=== PATIENT | male | born 2000 | race African-American/Black ===

== ENCOUNTER 2018-04-28 01:12 | Emergency (ER) | payer MEDICAID, SELFPAY ==
[2018-04-28 01:14] VITALS: BP 126/81; PULSE 95; RESP 16; TEMP 36.9; O2SAT 99; BMI 24.3
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
[2018-04-28 01:21] VITALS: TEMP 36.9; O2SAT 99
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
[2018-04-28] MEDS: 0.9% Normal Saline 1,000 ML 1000 ML IV (01:43)
[2018-04-28] MEDS: Diphth,Pertuss(Acell),Tet Vac 0.5 ML Vial IM (01:43)
--- NOTE | 2018-04-28 01:52 | ED.RN ---
PD AT BEDSIDE WITH PATIENT. 1CM LACERATION ON BRIDGE OF NOSE. 5CM ABRASION TO LEFT TEMPORAL AREA ABOVE LEFT EYE BROW. BRUISING AND TENDERNESS TO LEFT EAR. NO BLEEDING FROM EARS NOTED.
[2018-04-28] MEDS: Morphine 4 MG/ML Syringe IV (02:08)
[2018-04-28 02:28] VITALS: BP 135/90; PULSE 65; RESP 16; O2SAT 100
[2018-04-28] MEDS: Cefazolin 1 GM/50 ML BAG IV (02:59)
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
[2018-04-28 03:00] VITALS: BP 130/88; PULSE 72; RESP 14; O2SAT 100
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
[2018-04-28 03:57] VITALS: BP 114/59; PULSE 91; RESP 18; O2SAT 98
[2018-04-28] MEDS: Ketorolac 15 MG/ML Vial IV (04:04)
--- NOTE | 2018-04-28 04:10 | ED.RN ---
Reviewed discharge instructions with patient, male friend and mother. Pt states he will stay with mom manuel. She has plenty of ice, heat and ibuprofen for pain. PT instructed to fill rx for atb and for fu. Paperwork given to adult male friend in room. Wheelchair to lobby. Mom drove home.
[2018-04-28 04:11] VITALS: BP 120/70; PULSE 65; RESP 16; O2SAT 98
== END 2018-04-28 04:10 | disposition home or self-care (01) ==
PROVIDERS: Emergency Provider Emergency Medicine
DX: S02.2XXA Fracture of nasal bones, initial encounter for closed fracture (principal); S01.21XA Laceration without foreign body of nose, initial encounter; S01.511A Laceration without foreign body of lip, initial encounter; S00.83XA Contusion of other part of head, initial encounter; S00.03XA Contusion of scalp, initial encounter; S00.81XA Abrasion of other part of head, initial encounter; S00.01XA Abrasion of scalp, initial encounter; S39.92XA Unspecified injury of lower back, initial encounter; Y04.0XXA Assault by unarmed brawl or fight, initial encounter; Y93.89 Activity, other specified; Y92.89 Other specified places as the place of occurrence of the external cause; Z59.0 Homelessness
CPT/HCPCS: 12013; 70450; 70486; 72100; 72125; 80320; 90715; 96361; 96365; 96375; 99285; J7030; J7050; A4216; G0480

== ENCOUNTER 2018-05-13 11:22 | Emergency (ER) | payer MEDICAID, SELFPAY ==
[2018-05-13 11:22] VITALS: BP 120/66; PULSE 100; RESP 17; TEMP 37.3; O2SAT 99; BMI 24.4
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
--- NOTE | 2018-05-13 11:40 | ED.DEP ---
ED Disposition - Plan for ED Patient: Instructions: ED Wound Check Sutr Remove No Infec Referrals: Care Physician,No Primary [Primary Care Provider] -
== END 2018-05-13 12:02 | disposition home or self-care (01) ==
PROVIDERS: Emergency Provider Emergency Medicine
DX: Z48.02 Encounter for removal of sutures (principal); Z72.0 Tobacco use
CPT/HCPCS: 99282

== ENCOUNTER 2019-11-10 17:05 | Emergency (ER) | payer MEDICAID, SELFPAY ==
[2019-11-10 17:06] VITALS: BP 155/78; PULSE 84; RESP 16; TEMP 36.6; O2SAT 98; BMI 25.0
--- NOTE | 2019-11-10 17:34 | ED.DCSUM_ITS ---
History of Present Illness Chief Complaint: Diarrhea Informant: Patient Narrative: Patient is a 19-year-old previously healthy male who presents to the emergency department for diarrhea and abdominal cramping. He is also been slightly nauseous with dry heaving. This all started yesterday. He has had 2-3 episodes of loose stools today. He did eat what he believes undercooked chicken at work just prior to his symptoms started. No known sick contacts. He denies any fevers or chills. Currently rates his abdominal discomfort as a 4 out of 10. Has not tried taking anything for this. Denies any blood in the stool. Has still been able to eat and drink. No previous abdominal surgeries. Patient states he missed work today and would like a work excuse. He denies any recent travel or antibiotic use. Denies having this happen before in the past. He denies any drug use. Denies alcohol use and is a current every day smoker. Past Medical History - Allergies and Home Meds Allergies/Adverse Reactions: Allergies fluphenazine Allergy (Verified 11/10/19 17:05) STROKE LIKE SYMPTOMS Primary Care Physician: Care Physician,No Primary [Primary Care Provider] - Prior records reviewed: Yes Past Medical History: None Surgical History: no surgical history Smoking Status: Current every day smoker Alcohol: None Drugs: None Review of Systems General: Denies: Chills, Fever, Sweats Eyes: Denies: Visual changes - bilaterally, Diplopia ENT: Denies: Rhinorrhea, Sore throat Cardiovascular: Denies: Chest pain, Palpitations Respiratory: Denies: Dyspnea, Cough, Dyspnea on exertion Gastrointestinal: Reports: Abdominal pain, Nausea, Diarrhea. Denies: Vomiting, Melena, Hematochezia Genitourinary: Denies: Dysuria, Hematuria, Frequency Musculoskeletal: Denies: Back pain, Extremity Pain Skin: Denies: Rash, Wounds Neurological: Denies: Headache, Weakness, Numbness Physical Exam Vital Signs/Narrative: Vital Signs Temp Pulse Resp BP Pulse Ox 11/10/19 17:06 98 F 84 16 155/78 H 98 Inital Vital Signs reviewed: Yes General: Well nourished, Well developed, No Acute Distress Head: Normocephalic, Atraumatic Eyes: Perrl, EOMI ENT: Moist mucous membranes, No rhinorrhea Neck: Supple, Nontender Cardiovascular: Regular rate, Regular rhythm, No murmurs Respiratory: No distress, CTA bilaterally, Chest nontender Abdomen: Soft, Nondistended, Normal bowel sounds, Tender - Mild, diffuse. No pain over McBurney's point. Negative Snell sign. No peritoneal signs.. Negative for: Rebound tenderness Back: Nontender, Normal Inspection. Negative for: CVA tenderness Extremities: Nontender, No edema Skin: Normal color, No rash Neurological: Alert, Oriented x3, Cranial nerves II-XII grossly intact, Normal Strength, Normal Sensation Psychological: Normal affect, Normal Mood Diagnostic/Tx/Re-eval - Medical Decision Making Patient presents to the ED for diarrhea, nausea and abdominal cramping after eating undercooked chicken. He is afebrile upon arrival. Not tachycardic. Does not appear dehydrated on physical exam. Commend symptomatic treatment. Disc discussed risks of Salmonella poisoning. At this time no indication for antibiotic treatment. Will recommend symptomatic care. Patient will be given a prescription for Zofran. He states he take Pepto-Bismol as well. I believe that this is an appropriate plan. At this time will discharge home in stable condition. He does not have a PCP so he was provided one from the doc list. Warning signs and symptoms for which to return to the emergency department are reviewed. He understands and is agreeable this plan. ED Disposition - Plan for ED Patient: Disposition: Home or Assisted Living Diagnosis: Diarrhea Instructions: ED Gastroenteritis Vs Food Poison Prescriptions: Ondansetron [Zofran Odt] 4 mg PO Q8H PRN PRN #10 tab PRN Reason: Nausea/Vomiting Transmission Status: Pending to [id number] Referrals: Care Physician,No Primary [Primary Care Provider] - Abbi Malik DO [[facility]] - 3-5 Days if not improving
[2019-11-10 17:55] VITALS: PULSE 78; RESP 15; O2SAT 99
== END 2019-11-10 17:55 | disposition home or self-care (01) ==
LOC: ED 17:43
PROVIDERS: Emergency Provider Emergency Medicine
DX: R19.7 Diarrhea, unspecified (principal); F17.200 Nicotine dependence, unspecified, uncomplicated
CPT/HCPCS: 99282

== ENCOUNTER 2020-12-05 11:31 | Emergency (ER) | payer OTHER, MEDICAID, SELFPAY ==
[2020-12-05 11:32] VITALS: BP 124/84; PULSE 85; RESP 16; TEMP 36.4; O2SAT 100; BMI 26.0
--- NOTE | 2020-12-05 11:57 | EX.ED.DYSGE1 ---
HPI History of Present Illness Chief Complaint: Cough Detail of Chief Complaint: Covid symptoms Onset/Context/Timing Onset: Yesterday Context: Sudden Onset Timing: Continuous Quality: Congestion, rhinorrhea, sore throat, cough, diarrhea etc. Location: Generalized Current Severity: Mild Maximum Severity: Moderate Worsened by: Nothing Relieved by: Nothing Associated Symptoms Associated Symptoms: Myalgias and arthralgias Narrative Narrative: Patient is a 20-year-old male who presents with chief complaint of Covid-like symptoms. He states his mother's fianc? was tested positive. His symptoms started yesterday. He reports mild headache. He denies photophobia, neck pain or neck stiffness. He does report upper respiratory symptoms. His cough is nonproductive. He does report abdominal discomfort with mild nausea and diarrhea. He endorses myalgias arthralgias. Is not noted a rash. He has not taken his temperature. He has loss of taste and smell. Prior similar symptoms: No Recent Illness/Hospitalization: No PFSH PFSH Home Medications ondansetron 4 mg PO Q8H PRN PRN #10 tab 11/10/19 [Rx Last Taken Unknown] Allergy/AdvReac Type Severity Reaction Status Date / Time fluphenazine Allergy STROKE Verified 12/05/20 11:34 LIKE SYMPTOMS Social History (Updated 12/05/20 @ 11:[address] Sammy Barroso MD) household members: family Smoking Status: Current every day smoker alcohol intake: never substance use type: does not use ROS ROS ED Constitutional Constitutional ED: Denies chills, fever(s), subjective or sweats Eyes Eyes: Denies blurry vision, change in vision or diplopia ENT ENT ED: Reports rhinorrhea and sore throat; Denies ear pain Cardiovascular Cardiovascular: Denies chest pain, orthopnea, palpitations or paroxysmal nocturnal dyspnea Respiratory/Chest Respiratory/Chest: Reports cough; Denies dyspnea, dyspnea on exertion, orthopnea, paroxysmal nocturnal dyspnea or sputum Gastrointestinal Gastrointestinal: Reports abdominal pain, diarrhea and nausea; Denies constipation, melena or vomiting Genitourinary Genitourinary ED: Denies dysuria, hematuria or urinary frequency Musculoskeletal Musculoskeletal: Reports arthralgias and myalgias; Denies neck pain Integumentary Denies rash Neurologic Neurologic: Reports headache(s) and weakness; Denies paresthesias Allergic/Immunologic Allergic/Immunologic ED: Denies mouth swelling, tongue swelling or urticaria EXAM Physical Exam Const Vital Signs: 12/05/20 11:32 Temperature 97.6 F L Temperature Source Temporal Pulse Rate 85 Respiratory Rate 16 Blood Pressure 124/84 H Blood Pressure Mean 97 Pulse Ox 100 Oxygen Delivery Method Room Air Positive well nourished and well developed General Appearance ED: well developed and NAD HEENT Reports moist mucous membranes HEENT Narrative: Head is atraumatic normocephalic. Ears normal. Nares patent. Posterior pharynx no erythema or exudate. Eyes PERRL and EOMs intact bilaterally General Eye ED: Negative for pale conjunctiva or scleral icterus Neck no lymphadenopathy, supple and no JVD Chest Wall inspection of chest normal Resp normal respiratory effort and clear to auscultation bilaterally Cardio regular rate, regular rhythm, S1 normal heart sound, S2 normal heart sound and no murmurs GI normal to inspection, nondistended, normoactive bowel sounds Palpation: soft Back/Spine no CVA tenderness Cervical Spine: cervical spine tenderness Thoracic Spine / Upper Back: thoracic spinal tenderness and paraspinal muscle tenderness Extremity normal to inspection General Extremety ED: Negative for edema or tenderness General Extremity: Negative for edema Neuro oriented x3 and CN's II-XII intact bilaterally Sensorium / Orientation: alert Psych mental status grossly normal Skin no rashes or lesions noted and no wounds MDM MDM MDM Narrative Medical decision making narrative: With exposure to Covid symptoms consistent with Covid will obtain rapid Covid test. Patient's been told to self quarantine for 10 days. He was discharged to home in stable condition. Discharge Plan Triage Chief Complaint: Cough ED Provider: Sammy Barroso Dx/Rx/DC Orders Clinical Impression: COVID-19 virus infection Instructions: Coronavirus Disease 2019 (COVID-19): Caring for Yourself or Others Prescriptions: No Action ondansetron 4 MG tablet 4 mg PO Q8H PRN PRN (Reason: Nausea/Vomiting) Qty: 10 RF: 0 Stand Alone Forms: ED Work / School Excuse Primary Care Provider: Care Physician,No Primary Referrals: Vinh Oh MD [STAFF PHYSICIAN] - 10-14 Days if not better Care Physician,No Primary [Primary Care Provider] - Activity Restrictions/Additional Instructions: ED to self quarantine until December 14 Disposition Disposition: Home, Self Care
[2020-12-05 12:04] VITALS: O2SAT 98
== END 2020-12-05 12:12 | disposition home or self-care (01) ==
LOC: ED 12:08
PROVIDERS: Emergency Provider Emergency Medicine
DX: U07.1 COVID-19 (principal); F17.200 Nicotine dependence, unspecified, uncomplicated
CPT/HCPCS: 87426; 99282

== ENCOUNTER 2021-02-02 09:55 | Emergency (ER) | payer OTHER, MEDICAID, SELFPAY ==
[2021-02-02 09:56] VITALS: BP 131/73; PULSE 108; RESP 16; TEMP 35.9; O2SAT 99; BMI 27.1
--- NOTE | 2021-02-02 10:10 | RAD_ITS ---
STUDY: X-RAY CHEST REASON FOR EXAM: Male, 20 years old. Cough. TECHNIQUE: COMPARISON: None. FINDINGS: The lungs are clear and expanded. There is no demonstrated pleural abnormality. Normal size heart. Normal mediastinum and brigid. Normal visualized pulmonary arteries. Normal visualized aortic arch and descending thoracic aorta. Normal visualized thoracic spine. Normal visualized ribs, clavicles, and shoulders. There is no demonstrated abnormality of the visualized soft tissue structures of the upper abdomen. RAD/Chest 1 View (Portable) IMPRESSION: Normal x-ray examination of the chest. Electronically Signed: Wilian Mckeon MD at 10:33 EDT Tel , Service support ,
--- NOTE | 2021-02-02 10:11 | EX.ED.VIS.UR ---
HPI HPI - URI History of Present Illness Chief Complaint: Cough Detail of Chief Complaint: Cough for 5 days Informant: patient Narrative Narrative: Patient presents with a cough that he has had for 5 to 6 days. Patient was seen in urgent care 5 days ago and tested negative for COVID-19. Patient apparently went back to urgent care and diagnosed with bronchitis. Patient was given steroids as well as cough medicine and is not sure if he got an antibiotic. Patient states that he is got headache and pressure in his face. Continues to cough and only bringing up small amounts of phlegm. Patient denies fever but has felt hot. Denies loss of taste or smell. Denies Covid exposures. He is not vaccinated against Covid. Denies sick contacts. Patient had small amount of diarrhea earlier in the week but that has resolved. His sore throat has also resolved. ROS ROS ED Constitutional Constitutional ED: Reports systems reviewed and no addt'l complaints, except as documented; Denies body ache(s), change in weight or chills Eyes Eyes: Denies acute decrease in peripheral vision, change in vision, double vision or loss of vision ENT ENT ED: Reports none; Denies ear pain, lip swelling, loss taste/smell, neck pain, otalgia or sore throat Cardiovascular Cardiovascular: Reports none; Denies abdominal pain, chest pain with activity, leg edema, lightheadedness, palpitations, rapid heart rate or syncope Respiratory/Chest Respiratory/Chest: Reports none and cough; Denies change in mental status, dry cough, dyspnea, hemoptysis, shortness of breath at rest or shortness of breath with exertion Gastrointestinal Gastrointestinal: Reports none; Denies abdominal pain, change in stool character, diarrhea, hematemesis, hematochezia, melena, rectal bleeding or vomiting Genitourinary Genitourinary ED: Reports none; Denies abdominal discomfort, anuria, dysuria, genital pain or polyuria Musculoskeletal Musculoskeletal: Reports none and myalgias; Denies arthralgias, back pain, difficulty walking, extremity pain or muscle weakness Integumentary Reports none; Denies abscess or rash Neurologic Neurologic: Reports none and headache(s); Denies abnormal gait, confusion, focal weakness, frequent falls, loss of vision, numbness, paresthesias, radicular pain, vertigo or weakness Psychiatric Psychiatric: Reports systems reviewed and no addt'l complaints, except as documented and none; Denies behavioral changes, confusion, difficulty concentrating, hallucinations, suicidal ideation, tactile hallucinations or visual hallucinations Endocrine Endocrinology: Denies none, cold intolerance, excessive sweating, fatigue or heat intolerance Hematologic/Lymphatic Hematologic/Lymphatic: Reports none; Denies anemia, easy bleeding or easy bruising Allergic/Immunologic Allergic/Immunologic ED: Denies as per HPI, none, lip swelling, mouth swelling, throat swelling, tongue swelling or hives PFSH PFSH Home Medications ondansetron 4 mg PO Q8H PRN PRN #10 tab 11/10/19 [Rx Last Taken Unknown] amoxicillin-pot clavulanate 875 mg PO Q12H #20 tablet 02/02/21 [Rx Last Taken Unknown] Allergy/AdvReac Type Severity Reaction Status Date / Time fluphenazine Allergy STROKE Verified 02/02/21 09:59 LIKE SYMPTOMS Social History (Updated 12/05/20 @ 11:[address] Sammy Barroso MD) household members: family Smoking Status: Current every day smoker tobacco type: e-cigarettes alcohol intake: never substance use type: does not use EXAM Physical Exam Const Vital Signs: 02/02/21 09:56 Temperature 96.7 F L Temperature Source Temporal Pulse Rate 108 H Respiratory Rate 16 Blood Pressure 131/73 H Blood Pressure Mean 92 Pulse Ox 99 Oxygen Delivery Method Room Air Positive well nourished and well developed General Appearance ED: well developed and NAD HEENT Reports TM's clear and moist mucous membranes HEENT Narrative: Mild tenderness over the frontal sinuses. Mild tenderness over the maxillary sinuses. normocephalic and atraumatic; Negative for trauma or tenderness Tympanic Membrane ED: Yes TM's clear Eyes PERRL and EOMs intact bilaterally General Eye ED: Negative for pale conjunctiva or scleral icterus Neck no lymphadenopathy, supple and no JVD General: Negative for tenderness Chest Wall inspection of chest normal and palpation of chest normal Chest: Negative for tenderness Resp normal respiratory effort and clear to auscultation bilaterally Effort and Inspection: Negative for respiratory distress or pain with movement Auscultation: Negative for rhonchi, wheezes or diminished lung sounds Cardio regular rate, regular rhythm, S1 normal heart sound, S2 normal heart sound and no murmurs Peripheral Pulses: pulses 2+ throughout GI normal to inspection, nondistended, normoactive bowel sounds, soft to palpation, non-tender, non-distended and no masses Back/Spine no CVA tenderness and no thoracic nor lumbar tenderness Extremity normal to inspection General Extremety ED: Negative for edema General Extremity: Negative for edema Neuro oriented x3, CN's II-XII intact bilaterally, no sensory deficits noted and gait normal Sensorium / Orientation: awake, alert, oriented to person, oriented to place and oriented to time Motor Exam: strength 5/5 throughout and strength abnormal Psych mental status grossly normal Skin no rashes or lesions noted and no wounds MDM MDM MDM Narrative Medical decision making narrative: Patient had a negative influenza screen and a chest x-ray here that was unremarkable. His COVID-19 PCR test will be pending and he will get his results on his phone. I will start him on Augmentin for suspected sinusitis. Patient to follow-up with primary care physician chapter relations administrator for no doc within the next 3 to 5 days. Patient advised to self quarantine if Covid test positive. Lab Data Attestation: I reviewed the patient's lab results. Radiography Diagnostic Testing: Clinical Impression(s) from Imaging Studies Chest X-Ray 02/02/21 10:10 IMPRESSION: Normal x-ray examination of the chest. Electronically Signed: Wilian Mckeon MD at 10:33 EDT Tel , Service support , 1 view chest x-ray obtained interpreted by myself as no acute disease process. Radiology in agreement. Discharge Plan Triage Chief Complaint: Cough ED Provider: Denny Russ Dx/Rx/DC Orders Clinical Impression: Sinusitis, Acute upper respiratory infection Instructions: Rhinosinusitis Acute Bacterial, ED Upper Resp Infec Abx Tx Prescriptions: New amoxicillin-pot clavulanate [amoxicillin-pot clavulanate] 875 MG tablet 875 mg PO Q12H Qty: 20 RF: 0 No Action ondansetron 4 MG tablet 4 mg PO Q8H PRN PRN (Reason: Nausea/Vomiting) Qty: 10 RF: 0 Primary Care Provider: Care Physician,No Primary Referrals: Phi Munoz MD [STAFF PHYSICIAN] - 5-7 Days Care Physician,No Primary [Primary Care Provider] - Disposition Disposition: Home, Self Care
== END 2021-02-02 11:04 | disposition home or self-care (01) ==
PROVIDERS: Emergency Provider Emergency Medicine
DX: U07.1 COVID-19 (principal); J01.90 Acute sinusitis, unspecified
CPT/HCPCS: 71045; 87635; 87804; 99283; U0005; U0003

== ENCOUNTER → 2021-10-03 | Outpatient (CLI) | payer MEDICAID, SELFPAY ==
--- NOTE | 2021-10-03 11:54 | RAD_ITS ---
STUDY: X-RAY CHEST REASON FOR EXAM: Male, 20 years old. Shortness of breath TECHNIQUE: PA and lateral views of the chest. COMPARISON: Comparison is made with prior study 02/02/2021. FINDINGS: Hyperinflation. The lungs are clear. There is no demonstrated pleural abnormality. Normal size heart. Normal mediastinum and brigid. Normal visualized pulmonary arteries. Normal visualized aortic arch and descending thoracic aorta. Normal visualized thoracic spine. Normal visualized ribs, clavicles, and shoulders. There is no demonstrated abnormality of the visualized soft tissue structures of the upper abdomen. RAD/Chest PA and Lateral IMPRESSION: Hyperinflation. The lungs are clear. Electronically Signed: Hitesh Sosa MD at 12:40 EDT ,
== END | disposition home or self-care (01) ==
LOC: RAD 11:52
PROVIDERS: PCP Internal Medicine; Referring Provider Internal Medicine; Visit Provider Internal Medicine
DX: R06.02 Shortness of breath (principal)
CPT/HCPCS: 71046

== ENCOUNTER → 2021-10-21 | Outpatient (CLI) | payer MEDICAID, SELFPAY ==
--- NOTE | 2021-10-21 13:55 | ECHOD_ITS ---
Reason For Study: DYSPNEA Procedure This was a 2D Doppler, Color Flow transthoracic echocardiogram. Exam performed in department. Left Ventricle Normal LV size. Left ventricular systolic function is normal. The estimated ejection fraction is 65 %. Normal diastology for age. No regional wall motion abnormalities noted. Right Ventricle Normal RV size. Normal systolic function. Atria Normal left atrium. Normal right atrium. Mitral Valve Normal mitral valve. Tricuspid Valve Normal tricuspid valve. Mild tricuspid valve insufficiency. Pulmonary artery systolic pressure is 20 mmHg. Aortic Valve Normal aortic valve. Trisinus/trileaflet aortic valve. Pulmonic Valve Normal pulmonic valve. Great Vessels Normal aortic root. The pulmonary artery is normal size. Normal inferior vena cava. Pericardium/Pleural No pericardial effusion. MMode/2D Measurements & Calculations LVIDd: 4.8 cm IVSd: 0.61 cm LAV(MOD-bp): 22.4 ml LVIDs: 3.4 cm LVPWd: 0.73 cm LAV(MOD-bp) Indexed: 10.1 ml/m2 RVDd: 3.4 cm FS: 28.8 % LAV(MOD-sp2): 29.2 ml LAV(MOD-sp4): 17.1 ml SV(MOD-sp4): 43.2 ml SV(sp4-el): 45.7 ml LVAd ap4: 29.2 cm2 LVLd ap4: 8.5 cm EDV(MOD-sp4): 80.6 ml EDV(sp4-el): 84.7 ml LVAs ap4: 17.6 cm2 LVLs ap4: 6.7 cm ESV(MOD-sp4): 37.4 ml ESV(sp4-el): 39.0 ml EF(MOD-sp4): 53.6 % EF(sp4-el): 54.0 % LA A4 area: 9.1 cm2 RA A4 area: 17.4 cm2 Time Measurements MV dec time: 0.20 sec Doppler Measurements & Calculations MV E max rahul: 85.0 cm/sec Lat Peak E' Rahul: 21.5 cm/sec Med Peak E' Rahul: 11.5 cm/sec MV A max rahul: 50.9 cm/sec E/E' lat: 3.9 E/E' med: 7.4 MV E/A: 1.7 MV dec slope: 445.5 cm/sec2 Ao V2 max: 132.6 cm/sec LV V1 max: 129.6 cm/sec Ao max P.0 mmHg LV V1 max P.7 mmHg Ao V2 mean: 90.5 cm/sec LV V1 mean P.5 mmHg Ao mean P.7 mmHg LV V1 mean: 87.5 cm/sec Ao V2 VTI: 23.7 cm LV V1 VTI: 21.2 cm PA V2 max: 115.2 cm/sec TR max rahul: 202.8 cm/sec PA V2 mean: 86.4 cm/sec TR max P.5 mmHg ECHO/Echo Complete Interpretation Summary Normal LV size. Left ventricular systolic function is normal. The estimated ejection fraction is 65 %. Normal diastology for age. Pulmonary artery systolic pressure is 20 mmHg. Ordering Physician: Rosalina Gonzalez Performed By: Karyna Garcia RCS
== END | disposition home or self-care (01) ==
LOC: CVS 13:53
PROVIDERS: PCP Internal Medicine; Visit Provider Internal Medicine
DX: R06.00 Dyspnea, unspecified (principal); R06.02 Shortness of breath
CPT/HCPCS: 93306

== ENCOUNTER → 2021-12-20 | Outpatient (CLI) | payer MEDICAID, SELFPAY ==
[2021-12-20 14:59] LABS: Absolute Lymphocyte Count 1.89 X10^3/uL (0.83-4.51); Absolute Neutrophil Count 2.8 X10^3/uL (2.0-7.7); Basophil# 0.13 X10^3/uL; Basophil% 2.1 % (0-1); Eosinophil# 0.61 X10^3/uL; Eosinophils% 9.7 % (0-5); Hematocrit 50.4 % (40-54); Hemoglobin 16.9 g/dL (13.0-16.5); Lymphocyte # 1.89 X10^3/ul (0.83-4.51); Mean Corp Hgb Conc 33.5 g/dL (32-36); Mean Corpuscular Hgb 29.4 pg (27.0-32.0); Mean Corpuscular Volume 87.8 fL (80-94); Mean Platelet Vol. 12.7 fl (6.2-12.0); Monocyte# 0.83 X10^3/uL; Monocyte% 13.2 % (0-10); NRBC Flagged by Analyzer 0 % (0-5); Neutrophil # 2.82 X10^3/uL (2.7-7.7); Neutrophil % 44.8 % (47-70); Platelet Count 140 K/mm3 (150-450); RBC Distribution Width SD 38.7 fl (35.1-43.9); Red Blood Count 5.74 M/mm3 (4.6-6.2); White Blood Count 6.3 K/mm3 (4.4-11.0)
[2021-12-20 15:26] LABS: AST(SGOT) 17 U/L (15-37); Alanine Aminotransfer ALT/SGPT 26 U/L (16-61); Albumin, Serum 4.1 g/dL (3.2-5.0); Alkaline Phosphatase 94 U/L (45-117); Anion Gap 6 (5-15); BUN 12 mg/dL (7-18); BUN/Creat Ratio 10.9 RATIO (10-20); Calcium,Total 9.1 mg/dL (8.5-10.1); Chloride 103 mmol/L (98-107); EST Glomerular Filtration Rate 88 mL/min (>60); Est Glom Filt Rate - Afr Amer 107 mL/min (>60); Glucose 83 mg/dL (74-106); Protein, Total 8.1 g/dL (6.4-8.2); Sodium Level 137 mmol/L (136-145); Thyroid Stim Hormone (TSH) 0.96 uIU/mL (0.358-3.74)
== END | disposition home or self-care (01) ==
LOC: BIMLAB 13:47
PROVIDERS: PCP Internal Medicine; Referring Provider Internal Medicine; Visit Provider Internal Medicine
DX: R06.02 Shortness of breath (principal); F32.A Depression, unspecified
CPT/HCPCS: 36415; 80053; 84443; 85025

== ENCOUNTER 2022-05-27 08:44 | Emergency (ER) | payer MEDICAID, SELFPAY ==
[2022-05-27 08:44] VITALS: BP 132/78; PULSE 76; RESP 18; TEMP 36.3; O2SAT 100; BMI 32.4
--- NOTE | 2022-05-27 10:10 | EX.ED.VIS.UR ---
HPI HPI - URI History of Present Illness Chief Complaint: Sore Throat Informant: patient Onset/Context/Timing Onset: Weeks (1) Context: Gradual Onset Timing: Continuous Quality: Sharp Location: Throat Worsened by: - (Nothing) Relieved by: Tylenol and - (NyQuil) Associated Symptoms Associated Symptoms: Positive for Nasal Congestion, Headache, Sinus Pressure, Nausea, Shortness of Breath and Productive Cough; Negative for Myalgias, Vomiting, Diarrhea, Chest Pain, Nonproductive cough or Hemoptysis Narrative Narrative: Patient presents with a sore throat that has been getting worse over the past week. Patient states it is gradually getting worse. Patient states it is constant. Patient describes his pain as sharp. Patient states nothing makes it worse. Patient states it is slightly better with Tylenol and NyQuil. Patient admits to cough with yellow sputum. Patient admits to some shortness of breath and nausea. Patient also admits to headache, sinus pressure, and nasal congestion. Patient denies any fevers. ROS ROS ED Constitutional Constitutional ED: Denies chills or fever(s) Eyes Eyes: Denies blurry vision or change in vision ENT ENT ED: Reports rhinorrhea and sore throat Cardiovascular Cardiovascular: Denies chest pain or palpitations Respiratory/Chest Respiratory/Chest: Reports cough and sputum; Denies dyspnea Gastrointestinal Gastrointestinal: Reports nausea; Denies vomiting Genitourinary Genitourinary ED: Denies dysuria or hematuria Musculoskeletal Musculoskeletal: Denies back pain or neck pain Integumentary Denies abscess or rash Neurologic Neurologic: Denies headache(s) or weakness Allergic/Immunologic Allergic/Immunologic ED: Denies mouth swelling or urticaria PFSH PFS Medical History COVID-19 virus infection Suicide attempt Tourette syndrome Home Medications albuterol sulfate 90 mcg/actuation aerosol inhaler 2 puff inhalation Q6H PRN shortness of breath or wheezing #8.5 grams 02/19/22 [Rx Last Taken Unknown] fluoxetine 10 mg capsule 10 mg PO DAILY #30 caps 02/24/22 [Rx Last Taken Unknown] fluoxetine 20 mg capsule (Prozac) 20 mg PO DAILY #30 caps 02/24/22 [Rx Last Taken Unknown] Allergy/AdvReac Type Severity Reaction Status Date / Time fluphenazine Allergy STROKE Verified 12/20/21 13:10 LIKE SYMPTOMS Family History Father Alcoholism Arthritis Depression Sister Anxiety Asthma Depression Mental disorder Mother Anxiety Arthritis Asthma Depression Diabetes High cholesterol Hypertension Mental disorder Thyroid disorder Attempted suicide Grandmother Arthritis Depression Diabetes High cholesterol Hypertension Grandfather Arthritis CVA (cerebral vascular accident) Hypertension Kidney disease Liver disease Myocardial infarction Aunt Suicide Surgical History no surgical history no surgical history Social History household members: other details: rehab facility current occupational status: unemployed Smoking Status: Current every day smoker tobacco type: e-cigarettes Electronic Cigarette Use: with nicotine and not used alcohol intake: current alcohol intake frequency: holidays/special occasions only substance use type: former substance user Date of last use: marijuana, benzodiazepines, fentanyl what type of physical activity do you participate in: additional details: basketball frequency: daily do you feel safe at home: Yes EXAM Physical Exam Const Vital Signs: 05/27/22 08:44 Temperature 97.4 F L Temperature Source Temporal Pulse Rate 76 Respiratory Rate 18 Blood Pressure 132/78 H Blood Pressure Mean 96 Pulse Ox 100 Oxygen Delivery Method Room Air Positive well nourished and well developed General Appearance ED: well developed HEENT Reports moist mucous membranes Throat: posterior oropharynx abnormal Positive for cobblestoning and erythema; Negative for exudates Neck supple and no JVD General: lymphadenopathy anterior cervical; Negative for anterior neck swelling Resp normal respiratory effort and clear to auscultation bilaterally Cardio regular rate, regular rhythm and no murmurs GI normal to inspection, nondistended, normoactive bowel sounds and non-tender Palpation: soft Extremity normal to inspection General Extremety ED: Negative for edema or tenderness General Extremity: Negative for edema Neuro oriented x3, CN's II-XII intact bilaterally and no sensory deficits noted Sensorium / Orientation: alert Motor Exam: strength 5/5 throughout Psych mental status grossly normal Skin no rashes or lesions noted MDM MDM MDM Narrative Medical decision making narrative: Pneumonia differential diagnosis includes strep throat, viral pharyngitis, and viral upper respiratory infection. Rapid strep will be obtained to assess for strep pharyngitis. Lab Data Attestation: I reviewed the patient's lab results. Lab results narrative: Rapid strep was reviewed and was negative. Treatment and Re-Evaluation Narrative: Patient was advised of his findings. Patient was advised that this is most likely a viral pharyngitis. Patient was instructed to take Tylenol or ibuprofen as needed for pain. Patient was instructed to drink plenty of fluids. Patient was instructed to continue [id number] decongestants as needed. Patient was instructed to follow-up with his primary care physician in 5 to 7 days. Patient understood and was agreeable with the plan. All questions were answered. Discharge Plan Triage Chief Complaint: Sore Throat ED Provider: Vinh Vaughn Dx/Rx/DC Orders Clinical Impression: Viral pharyngitis, Nicotine dependence with current use Instructions: ED Pharyngitis, Viral, ED URI, Viral, No Abx (Adult) Prescriptions: No Action albuterol sulfate 90 mcg/actuation HFA aerosol inhaler 2 puff inhalation Q6H PRN (Reason: shortness of breath or wheezing) Qty: 8.5 1RF fluoxetine 10 mg capsule 10 mg PO DAILY Qty: 30 1RF fluoxetine [Prozac] 20 mg capsule 20 mg PO DAILY Qty: 30 1RF Stand Alone Forms: ED Work / School Excuse Primary Care Provider: Care Physician,No Primary Referrals: Mihir Cid MD [Med Staff - Customer Service Security Officer] - 5-7 Days Care Physician,No Primary [Primary Care Provider] - Disposition Disposition: Home, Self Care
[2022-05-27 10:48] VITALS: PULSE 73; RESP 18; O2SAT 99
== END 2022-05-27 10:49 | disposition home or self-care (01) ==
PROVIDERS: Emergency Provider Emergency Medicine; Visit Provider Emergency Medicine
DX: J02.8 Acute pharyngitis due to other specified organisms (principal); F17.290 Nicotine dependence, other tobacco product, uncomplicated; B97.89 Other viral agents as the cause of diseases classified elsewhere; Z86.16 Personal history of COVID-19
CPT/HCPCS: 87880; 99282